=== PATIENT | male | born 1955 | race Caucasian/White ===

== ENCOUNTER 2017-11-07 14:22 | Emergency (ER) | payer BC, OTHER ==
--- NOTE | 2017-11-07 14:30 | PDOC ---
Attending Attestation - Resident Resident Name: Marina Sena - ED Attending Attestation I have performed the following: I have examined & evaluated the patient, The case was reviewed & discussed with the resident, I agree w/resident's findings & plan, Exceptions are as noted - HPI HPI: 11/07/17 15:41 The patient is a 62 year old male, with no significant past medical history, who presents to the emergency department s/p fall, with left rib pain. As per patient, he was getting up when he fell, hitting his left sided ribs on an armchair. After falling, he was unable to ambulate. He denies any loss of consciousness. He denies hitting his head. He denies any recent fevers, chills, headache or dizziness. He denies any recent nausea, vomit , diarrhea or constipation. He denies any recent chest pain or shortness of breath. He denies any recent dysuria, frequency, urgency or hematuria. Allergies: NKA Social History: Smoker. Denies EtOH use and recreational drug use. Primary Care Physician: Dr. Mayer - Physicial Exam PE: 11/07/17 15:41 GENERAL: Awake, alert, and fully oriented, in no acute distress HEAD: No signs of trauma EYES: PERRLA, EOMI, sclera anicteric, conjunctiva clear ENT: Auricles normal inspection, hearing grossly normal, nares patent, oropharynx clear without exudates. Moist mucosa NECK: Normal ROM, supple, no lymphadenopathy, JVD, or masses +LUNGS: Left chest wall ecchymosis and crepitus. Breath sounds equal, clear to auscultation bilaterally. No wheezes, and no crackles HEART: Regular rate and rhythm, normal S1 and S2, no murmurs, rubs or gallops ABDOMEN: Soft, nontender, normoactive bowel sounds. No guarding, no rebound. No masses EXTREMITIES: Normal range of motion, no edema. No clubbing or cyanosis. No cords, erythema, or tenderness NEUROLOGICAL: Cranial nerves II through XII grossly intact. Normal speech, normal gait SKIN: Warm, Dry, normal turgor, no rashes or lesions noted. Attestations - Attestations 11/07/17 15:42 Documentation prepared by Steve Valero, acting as medical massage therapist for Naya Cade MD.
[2017-11-07 14:38] VITALS: BP 118/64; TEMP 98.3; BMI 19.3
[2017-11-07] MEDS ORDERED: ACETAMINOPHEN 1000 MG/100 ML VIAL (NON FORMULARY) IVPB ONE (15:13)
[2017-11-07] MEDS ORDERED: ACETAMINOPHEN INJECTION 100 ML IVPB ONE (15:29)
[2017-11-07 15:50] VITALS: PULSE 112
== END 2017-11-07 16:14 | disposition short-term general hospital (02) ==
LOC: JER 14:22
PROC: 3E033NZ Introduction of Analgesics, Hypnotics, Sedatives into Peripheral Vein, Percutaneous Approach (ICD-10-PCS; principal; 2017-11-07)
DX: S22.42XA Multiple fractures of ribs, left side, initial encounter for closed fracture (principal); W18.09XA Striking against other object with subsequent fall, initial encounter; Y93.89 Activity, other specified; Y92.038 Other place in apartment as the place of occurrence of the external cause; Y99.8 Other external cause status
CPT/HCPCS: 71045-TC-FY; 99283-25; J0131

== ENCOUNTER 2022-04-07 22:30 | Inpatient (IN) | payer OTHER ==
[2022-04-08] MEDS ORDERED: ACETAMINOPHEN 1000 MG/100 ML BAG IVPB ONE (04:33)
[2022-04-08] MEDS ORDERED: ACETAMINOPHEN INJECTION 100 ML IVPB ONE (06:33)
[2022-04-08 06:49] LABS: BASO % 0.9 % (0-2.0); EOS % 3.5 % (0-4.5); HEMATOCRIT 26.3 % (35.4-49); HEMOGLOBIN 7.6 GM/dL (11.7-16.9); MCHC 28.9 g/dl (32.0-35.9); MEAN CELL VOLUME 60.2 fl (80-96); MEAN PLT VOLUME 6.6 fl (7.5-11.1); MONO % 11.3 % (3.8-10.2); NEUT % 57.3 % (42.8-82.8); PLATELET COUNT 708 10^3/uL (134-434); RBC 4.36 M/mm3 (4.00-5.60); RDW 19.6 % (11.9-15.9); WHITE BLOOD COUNT 10.7 K/mm3 (4.0-10.0)
[2022-04-08 06:53] LABS: INR 1.05 (0.83-1.09); PROTHROMBIN TIME (PATIENT) 12.1 SEC (9.7-13.0)
[2022-04-08 06:59] LABS: ALBUMIN 2.5 g/dl (3.4-5.0); BLOOD UREA NITROGEN 4.9 mg/dL (7-18); CALCIUM 8.3 mg/dL (8.5-10.1)
[2022-04-08 07:02] LABS: CREATININE 0.6 mg/dL (0.55-1.3)
[2022-04-08 07:04] LABS: BILIRUBIN,TOTAL 0.3 mg/dL (0.2-1); TOT PROT 6.2 g/dl (6.4-8.2)
[2022-04-08 07:09] LABS: MCH 17.4 pg (25.7-33.7)
[2022-04-08 09:10] LABS: ANISOCYTOSIS 3+; MACROCYTOSIS 0; ROULEAU 1+; TARGET CELLS 1+
[2022-04-08] MEDS ORDERED: KETOROLAC TROMETHAMINE 15 MG/ML VIAL IVPUSH PRN (13:55)
[2022-04-08] MEDS ORDERED: PANTOPRAZOLE 40 MG TABLET PO ONE (18:41)
[2022-04-08] MEDS: PANTOPRAZOLE 40 MG TABLET PO SCH (18:42)
[2022-04-08] MEDS: ATORVASTATIN CA 40 MG TABLET (FP) PO SCH (21:07)
[2022-04-08] MEDS ORDERED: ATORVASTATIN CA 40 MG TABLET (FP) ONE (21:08)
[2022-04-09] MEDS ORDERED: SODIUM CHLORIDE 1,000 ML IV SCH (08:00)
[2022-04-09 08:13] LABS: RETICULOCYTES 1.91 % (0.5-1.5)
[2022-04-09 09:03] LABS: HEMATOCRIT 27.3 % (35.4-49); HEMOGLOBIN 8.1 GM/dL (11.7-16.9); MCHC 29.6 g/dl (32.0-35.9); MEAN CELL VOLUME 64.3 fl (80-96); MEAN PLT VOLUME 7.1 fl (7.5-11.1); PLATELET COUNT 593 10^3/uL (134-434); RBC 4.25 M/mm3 (4.00-5.60); RDW 24.6 % (11.9-15.9); WHITE BLOOD COUNT 8.4 K/mm3 (4.0-10.0)
[2022-04-09 09:32] LABS: ALBUMIN 2.2 g/dl (3.4-5.0)
[2022-04-09 09:33] LABS: BLOOD UREA NITROGEN 7.7 mg/dL (7-18); CALCIUM 7.7 mg/dL (8.5-10.1); MAGNESIUM 1.9 mg/dL (1.8-2.4); TOT PROT 5.1 g/dl (6.4-8.2)
[2022-04-09 09:35] LABS: CREATININE 0.6 mg/dL (0.55-1.3); PHOSPHOROUS 2.8 mg/dL (2.5-4.9)
[2022-04-09 09:37] LABS: BILIRUBIN,TOTAL 1.3 mg/dL (0.2-1)
[2022-04-09 09:46] LABS: ANISOCYTOSIS 3+; MACROCYTOSIS 0; TARGET CELLS 1+
[2022-04-09] MEDS ORDERED: guaiFENesin 200 MG/10 ML 10 ML UNIT-DOSE CUPS PO PRN (10:27)
[2022-04-09] MEDS: PANTOPRAZOLE 40 MG TABLET PO SCH ×2 (10:58→11:00)
[2022-04-09] MEDS: THIAMINE HCL 100 MG TABLET (FP) PO SCH ×2 (10:59→11:24)
[2022-04-09] MEDS: FOLIC ACID 1 MG TABLET (FP) PO SCH ×2 (10:59→11:24)
[2022-04-09] MEDS ORDERED: PANTOPRAZOLE 40 MG TABLET PO ONE (11:00)
[2022-04-09] MEDS ORDERED: ASPIRIN 81 MG CHEWABLE TABLETS ONE (19:26)
[2022-04-09] MEDS: ASPIRIN 81 MG CHEWABLE TABLETS PO SCH (19:32)
[2022-04-10] MEDS: ATORVASTATIN CA 40 MG TABLET (FP) PO SCH (01:31)
[2022-04-10 02:02] VITALS: BMI 16.9
[2022-04-10 06:18] VITALS: RESP 20
[2022-04-10] MEDS ORDERED: LORazepam 1 MG TABLET PO PRN (08:44)
[2022-04-10] MEDS ORDERED: PATIENT'S OWN MEDICATION (NON-FORMULARY) (Ferrous Sulfate [Ferrous Sulfate] 325 MG Tablet) PO SCH (08:45)
[2022-04-10] MEDS ORDERED: FLU VACC QS2022-23(6MOS UP)/PF 60 MCG/0.5 ML SYRINGE IM ONE (10:00)
[2022-04-10] MEDS ORDERED: FENOFIBRIC ACID 135 MG CAP PO SCH (10:00)
[2022-04-10] MEDS: ASPIRIN 81 MG CHEWABLE TABLETS PO SCH (12:01)
[2022-04-10] MEDS: PANTOPRAZOLE 40 MG TABLET PO SCH (12:02)
[2022-04-10] MEDS: FOLIC ACID 1 MG TABLET (FP) PO SCH (12:02)
[2022-04-10] MEDS: THIAMINE HCL 100 MG TABLET (FP) PO SCH (12:02)
[2022-04-10 16:30] VITALS: BP 114/60; PULSE 99; TEMP 100
[2022-04-11] MEDS ORDERED: ENOXAPARIN NA (PORCINE) 40 MG/0.4 ML DISP.SYRIN SQ SCH (10:00)
== END 2022-04-10 14:00 | disposition left against medical advice (07) | DRG 301 ==
LOC: JER 22:30 → JERBED 04-08 13:44 → J7W 04-09 23:22
PROVIDERS: ADMIT Internal Medicine; ATTEND Internal Medicine
DX: I73.9 Peripheral vascular disease, unspecified (principal); D50.9 Iron deficiency anemia, unspecified; I71.40 Abdominal aortic aneurysm, without rupture, unspecified; I10 Essential (primary) hypertension; F17.210 Nicotine dependence, cigarettes, uncomplicated; F10.20 Alcohol dependence, uncomplicated
CPT/HCPCS: 0241U-QW; 36415; 36430; 71045-TC-FY; 75635-TC; 80053; 82272; 82607; 82728; 82746; 83540; 83550; 83605; 83735; 84100; 85025; 85045; 85610; 85730; 86850; 86900; 86901; 86922; 93005; 93010; 93306-TC; 99285-25; G0008; P9058; Q2036; Q9967

== ENCOUNTER 2022-04-15 04:11 | Day surgery (SDC) | payer OTHER ==
[2022-04-14 16:44] VITALS: BMI 17.7
[2022-04-15] MEDS ORDERED: LIDOCAINE HCL 1%, 10 MG/ML (20ML VIAL) ONE (10:48)
[2022-04-15] MEDS ORDERED: HEPARIN NA (PORCINE) 5,000 UNITS/ML 1ML VIAL ONE ×2 (10:48→12:32)
[2022-04-15] MEDS ORDERED: MIDAZOLAM HCL 2 MG/2 ML SINGLE DOSE VIAL ONE (12:03)
[2022-04-15] MEDS ORDERED: FENTANYL CITRATE/PF 50 MCG/ML VIAL ONE (12:03)
[2022-04-15] MEDS ORDERED: PROPOFOL 20 ML ONE ×2 (12:03→12:56)
[2022-04-15] MEDS ORDERED: ceFAZolin SODIUM 1 GM VIAL ONE (12:14)
[2022-04-15] MEDS ORDERED: ceFAZolin SODIUM 1 GM VIAL IVPB ONE (12:15)
[2022-04-15] MEDS ORDERED: LIDOCAINE HCL 1%, 10 MG/ML (50 mL VIAL) INF ONE (12:45)
[2022-04-15] MEDS ORDERED: CLOPIDOGREL BISULFATE 75 MG TABLET (FP) PO ONE (13:48)
[2022-04-15] MEDS ORDERED: CLOPIDOGREL BISULFATE 75 MG TABLET (FP) ONE (14:35)
[2022-04-15 15:20] VITALS: RESP 20
[2022-04-15] MEDS ORDERED: ACETAMINOPHEN 500 MG TABLET (FP) ONE (15:23)
[2022-04-15 15:47] VITALS: BP 169/78; PULSE 86; TEMP 96.7
== END 2022-04-15 16:30 | disposition home or self-care (01) ==
LOC: JASU-SURG 04:11
PROVIDERS: ATTEND Surgery Vascular Surgery
PROC: 047L3D1 Dilation of Left Femoral Artery with Intraluminal Device, using Drug-Coated Balloon, Percutaneous Approach (ICD-10-PCS; 2022-04-15)
PROC: B41DYZZ Fluoroscopy of Aorta and Bilateral Lower Extremity Arteries using Other Contrast (ICD-10-PCS; principal; 2022-04-15 12:00)
DX: I73.9 Peripheral vascular disease, unspecified (principal); Z72.0 Tobacco use
CPT/HCPCS: 37226; C1877; C2623; 76000-TC-FY; 94760; C1760; C1776; J1644

== ENCOUNTER 2022-04-19 10:58 | Inpatient (IN) | payer OTHER ==
[2022-04-19 13:13] LABS: BASO % 1.8 % (0-2.0); EOS % 3.3 % (0-4.5); HEMATOCRIT 27.9 % (35.4-49); HEMOGLOBIN 8.2 GM/dL (11.7-16.9); LYMPH % 16.2 % (8-40); MCHC 29.5 g/dl (32.0-35.9); MEAN CELL VOLUME 63.6 fl (80-96); MEAN PLT VOLUME 6.3 fl (7.5-11.1); MONO % 15.6 % (3.8-10.2); NEUT % 63.1 % (42.8-82.8); PLATELET COUNT 923 10^3/uL (134-434); RBC 4.38 M/mm3 (4.00-5.60); RDW 26.2 % (11.9-15.9); WHITE BLOOD COUNT 8.6 K/mm3 (4.0-10.0)
[2022-04-19 13:17] LABS: MCH 18.8 pg (25.7-33.7)
[2022-04-19 13:32] LABS: CALCIUM 8.5 mg/dL (8.5-10.1)
[2022-04-19 13:33] LABS: ALBUMIN 2.5 g/dl (3.4-5.0); BLOOD UREA NITROGEN 5.5 mg/dL (7-18)
[2022-04-19 13:36] LABS: CREATININE 0.6 mg/dL (0.55-1.3)
[2022-04-19 13:37] LABS: TOT PROT 6.3 g/dl (6.4-8.2)
[2022-04-19 13:38] LABS: BILIRUBIN,TOTAL 0.3 mg/dL (0.2-1)
[2022-04-19 13:40] LABS: ACTIVATED PTT 31.7 SECONDS (25.2-36.5); INR 1.03 (0.83-1.09); PROTHROMBIN TIME (PATIENT) 11.8 SEC (9.7-13.0)
[2022-04-19] MEDS ORDERED: CLOPIDOGREL BISULFATE 75 MG TABLET (FP) PO ONE (14:01)
[2022-04-19] MEDS ORDERED: QUINAPRIL HCL 40 MG TABLET PO ONE (14:01)
[2022-04-19 14:18] LABS: ANISOCYTOSIS 3+; MACROCYTOSIS 0; OVALOCYTE 1+
[2022-04-19] MEDS ORDERED: CLOPIDOGREL BISULFATE 75 MG TABLET (FP) ONE (14:20)
[2022-04-19] MEDS ORDERED: ENOXAPARIN NA (PORCINE) 40 MG/0.4 ML DISP.SYRIN SQ ONE (14:20)
[2022-04-19] MEDS: ENOXAPARIN NA (PORCINE) 40 MG/0.4 ML DISP.SYRIN SQ SCH (14:23)
[2022-04-20 06:06] VITALS: BMI 16.9
[2022-04-20] MEDS: ASPIRIN 81 MG CHEWABLE TABLETS PO SCH (11:18)
[2022-04-20] MEDS: ENOXAPARIN NA (PORCINE) 40 MG/0.4 ML DISP.SYRIN SQ SCH (11:18)
[2022-04-20] MEDS ORDERED: LIDOCAINE HCL 1%, 10 MG/ML (20ML VIAL) ONE (14:30)
[2022-04-20] MEDS ORDERED: HEPARIN NA (PORCINE) 5,000 UNITS/ML 1ML VIAL ONE (14:31)
[2022-04-20] MEDS: NICOTINE 21 MG/24 HOURS TOPICAL PATCH TD SCH (16:23)
[2022-04-20 19:26] LABS: BASO % 1.4 % (0-2.0); EOS % 5.3 % (0-4.5); HEMATOCRIT 25.1 % (35.4-49); HEMOGLOBIN 7.7 GM/dL (11.7-16.9); LYMPH % 31.7 % (8-40); MCHC 30.7 g/dl (32.0-35.9); MEAN CELL VOLUME 63.4 fl (80-96); MEAN PLT VOLUME 6.6 fl (7.5-11.1); MONO % 9.1 % (3.8-10.2); NEUT % 52.5 % (42.8-82.8); PLATELET COUNT 929 10^3/uL (134-434); RBC 3.96 M/mm3 (4.00-5.60); RDW 25.8 % (11.9-15.9)
[2022-04-20 19:30] LABS: INR 1.15 (0.83-1.09); PROTHROMBIN TIME (PATIENT) 13.2 SEC (9.7-13.0)
[2022-04-20 19:35] LABS: MCH 19.4 pg (25.7-33.7)
[2022-04-20 19:53] LABS: BLOOD UREA NITROGEN 8.3 mg/dL (7-18); CALCIUM 8.1 mg/dL (8.5-10.1)
[2022-04-20 19:54] LABS: ALBUMIN 2.1 g/dl (3.4-5.0); MAGNESIUM 1.9 mg/dL (1.8-2.4)
[2022-04-20 19:57] LABS: CREATININE 0.8 mg/dL (0.55-1.3)
[2022-04-20 19:58] LABS: BILIRUBIN,TOTAL 0.4 mg/dL (0.2-1)
[2022-04-20 19:59] LABS: TOT PROT 5.5 g/dl (6.4-8.2)
[2022-04-20 21:20] LABS: ANISOCYTOSIS 3+; OVALOCYTE 1+; PLATELET ESTIMATE INCREASED; TARGET CELLS 1+
[2022-04-20] MEDS: FENOFIBRIC ACID 135 MG CAP PO SCH (23:57)
[2022-04-21] MEDS: NICOTINE 21 MG/24 HOURS TOPICAL PATCH TD SCH (09:48)
[2022-04-21] MEDS: CLOPIDOGREL BISULFATE 75 MG TABLET (FP) PO SCH (09:48)
[2022-04-21 10:26] LABS: BASO % 1.5 % (0-2.0); EOS % 6.1 % (0-4.5); HEMATOCRIT 24.1 % (35.4-49); HEMOGLOBIN 7.3 GM/dL (11.7-16.9); LYMPH % 25.8 % (8-40); MCH 19.2 pg (25.7-33.7); MCHC 30.1 g/dl (32.0-35.9); MEAN CELL VOLUME 63.8 fl (80-96); MEAN PLT VOLUME 6.5 fl (7.5-11.1); MONO % 12.3 % (3.8-10.2); NEUT % 54.3 % (42.8-82.8); PLATELET COUNT 901 10^3/uL (134-434); RBC 3.78 M/mm3 (4.00-5.60); RDW 26.1 % (11.9-15.9); WHITE BLOOD COUNT 6.7 K/mm3 (4.0-10.0)
[2022-04-21 10:52] LABS: BLOOD UREA NITROGEN 8.4 mg/dL (7-18); CALCIUM 7.9 mg/dL (8.5-10.1)
[2022-04-21 10:53] LABS: ALBUMIN 2.1 g/dl (3.4-5.0)
[2022-04-21 10:54] LABS: MAGNESIUM 1.7 mg/dL (1.8-2.4)
[2022-04-21 10:57] LABS: BILIRUBIN,TOTAL 0.3 mg/dL (0.2-1); CREATININE 0.7 mg/dL (0.55-1.3)
[2022-04-21 10:59] LABS: TOT PROT 5.5 g/dl (6.4-8.2)
[2022-04-21] MEDS ORDERED: MAGNESIUM OXIDE 400 MG TABLET (FP) PO ONE (13:30)
[2022-04-21] MEDS: SODIUM CHLORIDE 1 GM TABLET PO SCH ×2 (14:36→22:56)
[2022-04-21] MEDS: FENOFIBRIC ACID 135 MG CAP PO SCH (22:56)
[2022-04-22] MEDS: CLOPIDOGREL BISULFATE 75 MG TABLET (FP) PO SCH (09:14)
[2022-04-22] MEDS: SODIUM CHLORIDE 1 GM TABLET PO SCH (09:14)
[2022-04-22] MEDS: NICOTINE 21 MG/24 HOURS TOPICAL PATCH TD SCH (09:14)
[2022-04-22] MEDS: ENOXAPARIN NA (PORCINE) 40 MG/0.4 ML DISP.SYRIN SQ SCH (09:49)
[2022-04-22] MEDS: ASPIRIN 81 MG CHEWABLE TABLETS PO SCH (09:49)
[2022-04-22] MEDS ORDERED: PROPOFOL 20 ML ONE (10:36)
[2022-04-22] MEDS ORDERED: ONDANSETRON 4 MG/2 ML VIAL ONE (10:36)
[2022-04-22] MEDS ORDERED: ceFAZolin SODIUM 1 GM VIAL ONE ×2 (10:36→12:22)
[2022-04-22] MEDS ORDERED: LIDOCAINE HCL/PF 2% SDV 5ML VIAL ONE (10:36)
[2022-04-22] MEDS ORDERED: MIDAZOLAM HCL 2 MG/2 ML SINGLE DOSE VIAL ONE ×2 (10:36→11:16)
[2022-04-22] MEDS ORDERED: HEPARIN NA (PORCINE) 5,000 UNITS/ML 1ML VIAL ONE ×2 (10:37→11:08)
[2022-04-22] MEDS ORDERED: LACTATED RINGERS SOLUTION 1,000 ML IV SCH ×2 (11:00→13:25)
[2022-04-22] MEDS ORDERED: ONDANSETRON 4 MG/2 ML VIAL IVPUSH PRN ×2 (11:00→13:25)
[2022-04-22] MEDS ORDERED: LIDOCAINE HCL 1%, 10 MG/ML (20ML VIAL) ONE (11:08)
[2022-04-22 11:20] LABS: BASO % 1.2 % (0-2.0); EOS % 4.1 % (0-4.5); LYMPH % 18.8 % (8-40); MEAN CELL VOLUME 64.5 fl (80-96); MEAN PLT VOLUME 6.4 fl (7.5-11.1); MONO % 9.6 % (3.8-10.2); NEUT % 66.3 % (42.8-82.8); PLATELET COUNT 885 10^3/uL (134-434); RBC 3.41 M/mm3 (4.00-5.60); WHITE BLOOD COUNT 7.9 K/mm3 (4.0-10.0)
[2022-04-22 11:52] LABS: ALBUMIN 2.2 g/dl (3.4-5.0); BLOOD UREA NITROGEN 11.8 mg/dL (7-18); CALCIUM 7.6 mg/dL (8.5-10.1)
[2022-04-22 11:55] LABS: CREATININE 0.6 mg/dL (0.55-1.3)
[2022-04-22 11:57] LABS: BILIRUBIN,TOTAL 0.3 mg/dL (0.2-1); TOT PROT 5.6 g/dl (6.4-8.2)
[2022-04-22] MEDS ORDERED: FERROUS SO4 325 MG TABLET (FP) PO SCH ×2 (12:00→17:30)
[2022-04-22] MEDS ORDERED: ceFAZolin SODIUM 1 GM VIAL IVPB ONE (12:21)
[2022-04-22] MEDS ORDERED: SODIUM CHLORIDE 0.9% P/F 10 ML VIAL IJ ONE (12:22)
[2022-04-22 12:35] LABS: HEMOGLOBIN 6.8 GM/dL (11.7-16.9)
[2022-04-22] MEDS ORDERED: LIDOCAINE HCL 1%, 10 MG/ML (20ML VIAL) NR ONE (12:36)
[2022-04-22] MEDS ORDERED: IRON SUCROSE INJECTION 200 MG in SODIUM CHLORIDE 90 ML IVPB ONE ×2 (13:00→14:30)
[2022-04-22 14:24] VITALS: RESP 15
[2022-04-22] MEDS ORDERED: INSULIN (NOVOLOG) ASPART 100 UNITS/ML 10ML VIAL ONE (16:25)
[2022-04-22 19:01] VITALS: BP 130/67; PULSE 75; TEMP 97.8
[2022-04-22] MEDS ORDERED: SODIUM CHLORIDE 1 GM TABLET PO SCH (22:00)
[2022-04-22] MEDS ORDERED: FENOFIBRIC ACID 135 MG CAP PO SCH (22:00)
[2022-04-23] MEDS ORDERED: CLOPIDOGREL BISULFATE 75 MG TABLET (FP) PO SCH (10:00)
[2022-04-23] MEDS ORDERED: ENOXAPARIN NA (PORCINE) 40 MG/0.4 ML DISP.SYRIN SQ SCH (10:00)
[2022-04-23] MEDS ORDERED: FOLIC ACID 1 MG TABLET (FP) PO SCH ×2 (10:00)
[2022-04-23] MEDS ORDERED: NICOTINE 21 MG/24 HOURS TOPICAL PATCH TD SCH (10:00)
[2022-04-23] MEDS ORDERED: ASPIRIN 81 MG CHEWABLE TABLETS PO SCH (10:00)
== END 2022-04-22 19:20 | disposition home or self-care (01) | DRG 271 ==
LOC: JER 10:58 → JERBED 13:28 → J8W 20:36
PROVIDERS: ADMIT Internal Medicine; ATTEND Nurse Practitioner Acute Care
PROC: 047K3ZZ Dilation of Right Femoral Artery, Percutaneous Approach (ICD-10-PCS; 2022-04-22)
PROC: 3E05317 Introduction of Other Thrombolytic into Peripheral Artery, Percutaneous Approach (ICD-10-PCS; 2022-04-22)
PROC: B41DYZZ Fluoroscopy of Aorta and Bilateral Lower Extremity Arteries using Other Contrast (ICD-10-PCS; 2022-04-22)
PROC: 04CK3ZZ Extirpation of Matter from Right Femoral Artery, Percutaneous Approach (ICD-10-PCS; principal; 2022-04-22 12:00)
DX: I73.9 Peripheral vascular disease, unspecified (principal); E87.1 Hypo-osmolality and hyponatremia; I10 Essential (primary) hypertension; E78.5 Hyperlipidemia, unspecified; D50.9 Iron deficiency anemia, unspecified; F17.210 Nicotine dependence, cigarettes, uncomplicated; I99.8 Other disorder of circulatory system
CPT/HCPCS: 36415; 36430; 71046-TC-FY; 76000-TC-FY; 80053; 80061; 82436; 82533; 82728; 83540; 83550; 83735; 83930; 83935; 84133; 84300; 84436; 84443; 84480; 85025; 85610; 85730; 86850; 86900; 86901; 86922; 93005; 93010; 93926-TC; 94760; 99285-25; C9803-CS; G0463-25; J1644; J1756; P9058; U0003; U0005

== ENCOUNTER 2023-05-18 11:03 | Inpatient (IN) | payer OTHER ==
[2023-05-18] MEDS: CEFTRIAXONE 1 GM in DEXTROSE 5%-WATER - 100 ML IVPB ONE (12:21)
[2023-05-18] MEDS: SODIUM CHLORIDE 0.9% 500 ML INFUS.BAG IV ONE ×4 (12:21→14:41)
[2023-05-18] MEDS ORDERED: CEFTRIAXONE 1 GM/50 ML BAG ONE (12:22)
[2023-05-18 12:30] LABS: BASO % 0.3 % (0-2.0); EOS % 0.4 % (0-4.5); HEMATOCRIT 25.1 % (35.4-49); HEMOGLOBIN 7.8 GM/dL (11.7-16.9); MCH 23.5 pg (25.7-33.7); MCHC 30.9 g/dl (32.0-35.9); MEAN CELL VOLUME 76.1 fl (80-96); MEAN PLT VOLUME 6.5 fl (7.5-11.1); MONO % 5.7 % (3.8-10.2); NEUT % 87.6 % (42.8-82.8); PLATELET COUNT 301 10^3/uL (134-434); RDW 17.1 % (11.9-15.9); WHITE BLOOD COUNT 14.8 K/mm3 (4.0-10.0)
[2023-05-18 12:36] LABS: INR 1.86 (0.83-1.09); PROTHROMBIN TIME (PATIENT) 21.4 SEC (9.7-13.0)
[2023-05-18 12:38] LABS: ACTIVATED PTT 35.4 SECONDS (25.2-36.5)
[2023-05-18 12:55] LABS: PH,URINE 5.5 (5.0-8.0); URINE APPEARANCE CLEAR; URINE BILIRUBIN NEGATIVE (NEGATIVE); URINE COLOR YELLOW; URINE GLUCOSE (UA) NEGATIVE (NEGATIVE); URINE KETONE NEGATIVE (NEGATIVE); URINE LEUK ESTERASE NEGATIVE (NEGATIVE); URINE NITRITE NEGATIVE (NEGATIVE); URINE PROTEIN NEGATIVE (NEGATIVE); URINE UROBILINOGEN 0.2 mg/dL (0.2-1.0)
[2023-05-18 13:11] LABS: LACTIC ACID 2.2 mmol/L (0.4-2.0)
[2023-05-18 13:20] LABS: CHLORIDE 99 mmol/L (98-107); POTASSIUM 4.1 mmol/L (3.5-5.1); SODIUM 127 mmol/L (136-145)
[2023-05-18 13:26] LABS: ALBUMIN 1.2 g/dl (3.4-5.0); ANION GAP 8 mmol/L (4-13); CALCIUM 7.2 mg/dL (8.5-10.1); CO2 19 mmol/L (21-32)
[2023-05-18 13:28] LABS: CREATININE 0.8 mg/dL (0.55-1.3); SGOT/AST 43 U/L (15-37); SGPT/ALT 23 U/L (13-61)
[2023-05-18 13:30] LABS: TOT PROT 3.6 g/dl (6.4-8.2)
[2023-05-18 13:31] LABS: ALK PHOS 118 U/L (45-117)
[2023-05-18 13:39] LABS: BILIRUBIN,TOTAL 0.5 mg/dL (0.2-1)
[2023-05-18 13:47] LABS: BLOOD UREA NITROGEN 2.2 mg/dL (7-18); GLUCOSE,RANDOM 47 mg/dL (74-106)
[2023-05-18] MEDS ORDERED: DEXTROSE 50%-WATER 25 GM/50 ML DISP.SYRIN ONE (13:52)
[2023-05-18] MEDS: DEXTROSE 50%-WATER 25 GM/50 ML DISP.SYRIN IVPUSH ONE (13:55)
[2023-05-18] MEDS ORDERED: THIAMINE HCL 200 MG/2 ML VIAL ONE (14:03)
[2023-05-18] MEDS: THIAMINE HCL 200 MG/2 ML VIAL IVPB ONE (14:04)
[2023-05-18] MEDS: LACTATED RINGERS SOLUTION 1,000 ML/1,000 ML INFUS.BAG IV STA (14:40)
[2023-05-18] MEDS: LACTATED RINGERS SOLUTION 1000 ML INFUS.BAG IV ONE (15:56)
[2023-05-18] MEDS: DEXTROSE 5%-LACTATED RINGERS 1,000 ML IV SCH (18:59)
[2023-05-18] MEDS: FENOFIBRIC ACID 135 MG CAP PO SCH (21:05)
[2023-05-18 21:19] LABS: CHLORIDE 102 mmol/L (98-107); POTASSIUM 4.1 mmol/L (3.5-5.1); SODIUM 130 mmol/L (136-145)
[2023-05-18 21:21] LABS: ANION GAP 9 mmol/L (4-13); CO2 19 mmol/L (21-32); GLUCOSE,RANDOM 66 mg/dL (74-106)
[2023-05-18 21:24] LABS: CREATININE 0.7 mg/dL (0.55-1.3)
[2023-05-18 21:30] LABS: BLOOD UREA NITROGEN 2.4 mg/dL (7-18); CALCIUM 6.9 mg/dL (8.5-10.1)
[2023-05-19 08:02] LABS: BASO % 0.3 % (0-2.0); EOS % 3.1 % (0-4.5); HEMATOCRIT 22.2 % (35.4-49); LYMPH % 9.6 % (8-40); MCHC 31.5 g/dl (32.0-35.9); MEAN CELL VOLUME 76.3 fl (80-96); MEAN PLT VOLUME 6.9 fl (7.5-11.1); MONO % 10.3 % (3.8-10.2); NEUT % 76.7 % (42.8-82.8); PLATELET COUNT 323 10^3/uL (134-434); RBC 2.92 M/mm3 (4.00-5.60); RDW 16.9 % (11.9-15.9); WHITE BLOOD COUNT 11.1 K/mm3 (4.0-10.0)
[2023-05-19 08:08] LABS: CHLORIDE 102 mmol/L (98-107); SODIUM 129 mmol/L (136-145)
[2023-05-19 08:11] LABS: ALBUMIN 1.1 g/dl (3.4-5.0); ANION GAP 6 mmol/L (4-13); CO2 21 mmol/L (21-32); GLUCOSE,RANDOM 114 mg/dL (74-106); MAGNESIUM 1.7 mg/dL (1.8-2.4)
[2023-05-19 08:12] LABS: BLOOD UREA NITROGEN 3.2 mg/dL (7-18)
[2023-05-19 08:14] LABS: PHOSPHOROUS 2.2 mg/dL (2.5-4.9); SGPT/ALT 22 U/L (13-61)
[2023-05-19 08:15] LABS: CREATININE 0.8 mg/dL (0.55-1.3); SGOT/AST 36 U/L (15-37)
[2023-05-19 08:16] LABS: BILIRUBIN,TOTAL 0.4 mg/dL (0.2-1); TOT PROT 3.3 g/dl (6.4-8.2)
[2023-05-19 08:17] LABS: ALK PHOS 116 U/L (45-117)
[2023-05-19 08:26] LABS: CALCIUM 6.7 mg/dL (8.5-10.1)
[2023-05-19] MEDS ORDERED: MAGNESIUM SULFATE IN WATER 2 GM/50 ML IVPB IVPB ONE ×2 (08:31→11:44)
[2023-05-19] MEDS: MAGNESIUM 2GM/50ML STERILE WATER IVPB IVPB ONE ×3 (08:35→13:01)
[2023-05-19] MEDS: ENOXAPARIN NA (PORCINE) 40 MG/0.4 ML DISP.SYRIN SQ SCH (10:19)
[2023-05-19] MEDS: FOLIC ACID 1 MG TABLET (FP) PO SCH (10:19)
[2023-05-19] MEDS: ASPIRIN 81 MG CHEWABLE TABLETS PO SCH (10:19)
[2023-05-19] MEDS: FERROUS SO4 325 MG TABLET (FP) PO SCH (10:19)
[2023-05-19] MEDS: CLOPIDOGREL BISULFATE 75 MG TABLET (FP) PO SCH (10:20)
[2023-05-19] MEDS: THIAMINE HCL 100 MG TABLET (FP) PO SCH (10:20)
[2023-05-19] MEDS: PIPERACILLIN/TAZOB 3.375 GM 3.375 GM in DEXTROSE 5%-WATER - 50 ML IVPB SCH ×3 (10:35→18:44)
[2023-05-19] MEDS ORDERED: PIPERACILLIN/TAZOB 3.375 GM 3.375 GM/50 ML BAG IVPB ONE ×2 (10:35→18:45)
[2023-05-19] MEDS: SODIUM PHOSPHATE - 30 MM in SODIUM CHLORIDE 500 ML IVPB ONE (11:45)
[2023-05-19] MEDS: MAGNESIUM SULF 50% (8.12 MEQ/2 ML-1 GM VIAL) IVPB ONE (11:45)
[2023-05-19] MEDS: QUINAPRIL HCL 40 MG TABLET PO SCH (11:45)
[2023-05-19] MEDS ORDERED: VANCOMYCIN 1 GRAM (PRE-DOCKED) 1,000 MG/250 ML BAG IVPB ONE (16:11)
[2023-05-19] MEDS: VANCOMYCIN 1,000 MG in DEXTROSE 5%-WATER - 250 ML IVPB ONE (16:12)
[2023-05-20] MEDS ORDERED: PIPERACILLIN/TAZOB 3.375 GM 3.375 GM/50 ML BAG IVPB ONE (02:30)
[2023-05-20 07:22] LABS: HEMATOCRIT 23.2 % (35.4-49); HEMOGLOBIN 7.2 GM/dL (11.7-16.9); MCH 23.6 pg (25.7-33.7); MCHC 30.9 g/dl (32.0-35.9); MEAN CELL VOLUME 76.4 fl (80-96); MEAN PLT VOLUME 6.9 fl (7.5-11.1); PLATELET COUNT 293 10^3/uL (134-434); RBC 3.04 M/mm3 (4.00-5.60); RDW 16.9 % (11.9-15.9); WHITE BLOOD COUNT 8.7 K/mm3 (4.0-10.0)
[2023-05-20 07:33] LABS: POTASSIUM 3.9 mmol/L (3.5-5.1)
[2023-05-20 07:42] LABS: CALCIUM 7.1 mg/dL (8.5-10.1)
[2023-05-20 07:43] LABS: BLOOD UREA NITROGEN 4.8 mg/dL (7-18)
[2023-05-20 07:46] LABS: CREATININE 1.1 mg/dL (0.55-1.3); PHOSPHOROUS 3.6 mg/dL (2.5-4.9)
[2023-05-20 07:47] LABS: BILIRUBIN,TOTAL 0.5 mg/dL (0.2-1); TOT PROT 3.3 g/dl (6.4-8.2)
[2023-05-20] MEDS: FUROSEMIDE 40 MG/4 ML INJECTABLE VIAL IVPUSH ONE (08:06)
[2023-05-20] MEDS: NICOTINE 14 MG/24 HOURS TOPICAL PATCH TD SCH (09:46)
[2023-05-20] MEDS ORDERED: ALBUTEROL SO4 2.5/IPRATROPIUM 0.5 INH SOL 3 ML VIAL.NEB. NEB PRN (09:58)
[2023-05-20] MEDS: SODIUM CHLORIDE 250 ML IV STA (14:04)
[2023-05-20] MEDS: AMINO ACIDS/PROTEIN HYDROLYS 30 ML LIQUID.PKT PO SCH (17:25)
[2023-05-20] MEDS: MINERAL OIL/PET HY-PHL TOPICAL OINTMENT 454 GM JAR TP SCH (17:30)
[2023-05-20] MEDS ORDERED: NOREPINEPHRINE BITARTRATE 4 MG/4 ML ML IV ONE (22:45)
[2023-05-20] MEDS ORDERED: ONDANSETRON 4 MG/2 ML VIAL IVPUSH PRN (23:27)
[2023-05-20] MEDS ORDERED: PROPOFOL 1,000,000 MCG/100 ML VIAL ONE (23:42)
[2023-05-20] MEDS: LACTATED RINGERS SOLUTION 1,000 ML/1,000 ML INFUS.BAG IV STA (23:55)
[2023-05-21] MEDS: VASopressin 40 UNITS/100 ML BAG IV SCH (00:20)
[2023-05-21] MEDS ORDERED: VASopressin 20 UNITS/ML VIAL IV ONE (00:23)
[2023-05-21 00:42] LABS: ARTERIAL BLD GAS O2 SATURATION 99.7 % (95-98); ARTERIAL BLOOD GAS PO2 375.9 mmHg (80-100)
[2023-05-21 00:48] LABS: ARTERIAL BLOOD GAS pH 7.143 (7.350-7.450)
[2023-05-21] MEDS ORDERED: SODIUM BICARBONATE 4.2% 5 MEQ/10 ML DISP.SYRIN IVPUSH ONE ×2 (00:51→00:52)
[2023-05-21] MEDS ORDERED: SODIUM BICARBONATE 8.4% 50 MEQ/50 ML DISP.SYRIN ONE (00:54)
[2023-05-21] MEDS: VANCOMYCIN/WATER FOR INJ (PEG) 1 GM/200 ML BAG IVPB SCH (01:07)
[2023-05-21 01:19] LABS: BASO % 0.5 % (0-2.0); EOS % 4.7 % (0-4.5); LYMPH % 12.1 % (8-40); MCH 22.9 pg (25.7-33.7); MCHC 28.5 g/dl (32.0-35.9); MEAN CELL VOLUME 80.5 fl (80-96); MONO % 4.2 % (3.8-10.2); NEUT % 78.5 % (42.8-82.8); PLATELET COUNT 288 10^3/uL (134-434); RBC 2.86 M/mm3 (4.00-5.60); RDW 17.2 % (11.9-15.9)
[2023-05-21] MEDS: PROPOFOL 1,000,000 MCG/100 ML VIAL IVPB SCH (01:25)
[2023-05-21 01:28] LABS: INR 1.86 (0.83-1.09); PROTHROMBIN TIME (PATIENT) 21.5 SEC (9.7-13.0)
[2023-05-21 01:30] LABS: HEMOGLOBIN 6.6 GM/dL (11.7-16.9)
[2023-05-21] MEDS: SODIUM BICARBONATE 8.4% 50 MEQ/50 ML DISP.SYRIN IVPUSH ONE ×2 (01:30)
[2023-05-21] MEDS: NOREPINEPHRINE BITARTRATE/D5W 8 MG/250 ML BAG IVPB SCH (01:30)
[2023-05-21 01:31] LABS: ACTIVATED PTT 67.4 SECONDS (25.2-36.5)
[2023-05-21] MEDS: FENTANYL NS IVPB 500 MCG/100 ML BAG IVPB SCH (01:31)
[2023-05-21 01:36] LABS: CHLORIDE 108 mmol/L (98-107); SODIUM 138 mmol/L (136-145)
[2023-05-21 01:39] LABS: ALBUMIN 0.9 g/dl (3.4-5.0); ANION GAP 12 mmol/L (4-13); BLOOD UREA NITROGEN 6.1 mg/dL (7-18); CO2 18 mmol/L (21-32); GLUCOSE,RANDOM 122 mg/dL (74-106); MAGNESIUM 2.1 mg/dL (1.8-2.4)
[2023-05-21 01:42] LABS: CREATININE 1.6 mg/dL (0.55-1.3); SGOT/AST 47 U/L (15-37); SGPT/ALT 30 U/L (13-61)
[2023-05-21 01:43] LABS: BILIRUBIN,TOTAL 0.3 mg/dL (0.2-1)
[2023-05-21 01:45] LABS: ALK PHOS 115 U/L (45-117)
[2023-05-21] MEDS ORDERED: CALCIUM GLUCONATE 10% - 1,000 MG/10 ML VIAL ONE (01:53)
[2023-05-21] MEDS: CALCIUM GLUCONATE IN NACL 1 GM/50 ML BAG IVPB SCH (02:00)
[2023-05-21] MEDS: HYDROCORTISONE SOD SUCCINATE 100 MG/2 ML VIAL IVPB SCH (02:00)
[2023-05-21 02:02] LABS: LACTIC ACID 8.6 mmol/L (0.4-2.0)
[2023-05-21 02:02] LABS: CALCIUM 6.8 mg/dL (8.5-10.1)
[2023-05-21] MEDS: HEPARIN NA (PORCINE) 5,000 UNITS/ML 1ML VIAL SQ SCH (05:41)
[2023-05-21 08:40] LABS: ARTERIAL BLD GAS O2 SATURATION 97.2 % (95-98); ARTERIAL BLOOD GAS BASE EXCESS -7.4 mmol/L (-2-2); ARTERIAL BLOOD GAS pH 7.318 (7.350-7.450)
[2023-05-21 08:42] LABS: VENT MODE AC; VENT RATE 14
[2023-05-21 09:45] LABS: BASO % 0.3 % (0-2.0); EOS % 0.2 % (0-4.5); HEMATOCRIT 28.4 % (35.4-49); HEMOGLOBIN 8.7 GM/dL (11.7-16.9); LYMPH % 5.1 % (8-40); MCH 24.6 pg (25.7-33.7); MCHC 30.8 g/dl (32.0-35.9); MEAN CELL VOLUME 79.6 fl (80-96); MEAN PLT VOLUME 7.3 fl (7.5-11.1); MONO % 3.6 % (3.8-10.2); NEUT % 90.8 % (42.8-82.8); PLATELET COUNT 173 10^3/uL (134-434); RBC 3.56 M/mm3 (4.00-5.60); RDW 17.1 % (11.9-15.9); WHITE BLOOD COUNT 13.2 K/mm3 (4.0-10.0)
[2023-05-21] MEDS: PANTOPRAZOLE SODIUM 40 MG VIAL IVPUSH SCH (09:45)
[2023-05-21 09:48] LABS: EPI CELLS 22 /uL (0-25.1); HYALINE CASTS 2 /uL (0-3.1); PH,URINE 5.5 (5.0-8.0); URINE APPEARANCE TURBID; URINE BACTERIA 230 /uL (0-1359); URINE BILIRUBIN NEGATIVE (NEGATIVE); URINE COLOR YELLOW; URINE GLUCOSE (UA) NEGATIVE (NEGATIVE); URINE KETONE NEGATIVE (NEGATIVE); URINE LEUK ESTERASE NEGATIVE (NEGATIVE); URINE NITRITE NEGATIVE (NEGATIVE); URINE PROTEIN 2+ (NEGATIVE); URINE UROBILINOGEN 0.2 mg/dL (0.2-1.0)
[2023-05-21 09:54] LABS: URINE RBC 492.7 /uL (0-23.9); URINE WBC 726.7 /uL (0-25.8); YEAST NEGATIVE (NEGATIVE)
[2023-05-21 10:04] LABS: POTASSIUM 3.6 mmol/L (3.5-5.1)
[2023-05-21 10:07] LABS: ALBUMIN 0.9 g/dl (3.4-5.0); BLOOD UREA NITROGEN 5.1 mg/dL (7-18); MAGNESIUM 1.9 mg/dL (1.8-2.4)
[2023-05-21 10:10] LABS: CREATININE 1.4 mg/dL (0.55-1.3)
[2023-05-21 10:11] LABS: TOT PROT 2.9 g/dl (6.4-8.2)
[2023-05-21 10:14] LABS: BILIRUBIN,TOTAL 0.7 mg/dL (0.2-1); LACTIC ACID 2.1 mmol/L (0.4-2.0)
[2023-05-21] MEDS: MUPIROCIN 2% TOPICAL OINTMENT FOR DECOLONIZATION NS SCH (14:06)
[2023-05-21] MEDS: CHLORHEXIDINE GLUCONATE 4% CLEANSER FOR DECOLONIZATION TP SCH (21:38)
[2023-05-22] MEDS ORDERED: VANCOMYCIN/WATER FOR INJ (PEG) 1 GM/200 ML BAG IVPB SCH
[2023-05-22] MEDS: HEPARIN NA (PORCINE) 5,000 UNITS/ML 1ML VIAL SQ SCH (05:41)
[2023-05-22 08:21] LABS: HEMATOCRIT 29.5 % (35.4-49); MCH 24.6 pg (25.7-33.7); MCHC 30.6 g/dl (32.0-35.9); MEAN CELL VOLUME 80.4 fl (80-96); MEAN PLT VOLUME 7.6 fl (7.5-11.1); PLATELET COUNT 124 10^3/uL (134-434); RBC 3.66 M/mm3 (4.00-5.60); RDW 16.3 % (11.9-15.9); WHITE BLOOD COUNT 14.2 K/mm3 (4.0-10.0)
[2023-05-22 08:37] LABS: CHLORIDE 105 mmol/L (98-107); POTASSIUM 4.2 mmol/L (3.5-5.1); SODIUM 132 mmol/L (136-145)
[2023-05-22 08:42] LABS: ALBUMIN 0.9 g/dl (3.4-5.0); ANION GAP 11 mmol/L (4-13); CO2 16 mmol/L (21-32); GLUCOSE,RANDOM 193 mg/dL (74-106)
[2023-05-22 08:43] LABS: MAGNESIUM 1.7 mg/dL (1.8-2.4)
[2023-05-22 08:45] LABS: CREATININE 1.7 mg/dL (0.55-1.3); PHOSPHOROUS 6.7 mg/dL (2.5-4.9); SGOT/AST 36 U/L (15-37)
[2023-05-22 08:46] LABS: SGPT/ALT 28 U/L (13-61); TOT PROT 3.1 g/dl (6.4-8.2)
[2023-05-22 08:48] LABS: ALK PHOS 88 U/L (45-117)
[2023-05-22 08:49] LABS: BILIRUBIN,TOTAL 0.6 mg/dL (0.2-1)
[2023-05-22] MEDS: PANTOPRAZOLE SODIUM 40 MG VIAL IVPUSH SCH (09:45)
[2023-05-22] MEDS: CLOPIDOGREL BISULFATE 75 MG TABLET (FP) NGT SCH (09:46)
[2023-05-22 10:44] LABS: ANISOCYTOSIS 0; MACROCYTOSIS 0; OVALOCYTE 1+
[2023-05-22] MEDS: AMINO ACIDS 4.25%/D5W 1,000 ML IV SCH (13:11)
[2023-05-22] MEDS: ARTIFICIAL TEARS OPHTHALMIC DROPS OU SCH (14:14)
[2023-05-23 08:24] LABS: HEMOGLOBIN 9.3 GM/dL (11.7-16.9); MCH 24.5 pg (25.7-33.7); MCHC 30.2 g/dl (32.0-35.9); MEAN CELL VOLUME 81.4 fl (80-96); MEAN PLT VOLUME 8.2 fl (7.5-11.1); PLATELET COUNT 158 10^3/uL (134-434); RDW 16.8 % (11.9-15.9); WHITE BLOOD COUNT 27.7 K/mm3 (4.0-10.0)
[2023-05-23 08:36] LABS: CHLORIDE 101 mmol/L (98-107); SODIUM 129 mmol/L (136-145)
[2023-05-23 08:44] LABS: ANION GAP 11 mmol/L (4-13); CO2 17 mmol/L (21-32); GLUCOSE,RANDOM 139 mg/dL (74-106)
[2023-05-23 08:45] LABS: ALBUMIN 0.9 g/dl (3.4-5.0); BLOOD UREA NITROGEN 11.1 mg/dL (7-18); MAGNESIUM 1.8 mg/dL (1.8-2.4)
[2023-05-23 08:47] LABS: CREATININE 2.2 mg/dL (0.55-1.3); PHOSPHOROUS 7.6 mg/dL (2.5-4.9); SGOT/AST 81 U/L (15-37)
[2023-05-23 08:49] LABS: ALK PHOS 86 U/L (45-117); BILIRUBIN,TOTAL 0.5 mg/dL (0.2-1); SGPT/ALT 37 U/L (13-61); TOT PROT 3.3 g/dl (6.4-8.2)
[2023-05-23 08:50] LABS: CALCIUM 5.8 mg/dL (8.5-10.1)
[2023-05-23] MEDS: levETIRAcetam 500 MG/5 ML INJECTION VIAL IVPB SCH ×2 (09:09→11:18)
[2023-05-23 09:20] LABS: ANISOCYTOSIS 0; MACROCYTOSIS 0
[2023-05-23] MEDS: CALCIUM GLUCONATE 10% - 1,000 MG/10 ML VIAL IVPB ONE (16:54)
[2023-05-23] MEDS: CHOLECALCIFEROL (VIT D3) 1,000 UNIT (25 MCG) TABLET PO SCH (16:55)
[2023-05-23] MEDS: FLUDROCORTISONE ACETATE 0.1 MG TABLET (FP) PO SCH (16:55)
[2023-05-24 07:32] LABS: HEMATOCRIT 28.6 % (35.4-49); HEMOGLOBIN 8.7 GM/dL (11.7-16.9); MCH 24.5 pg (25.7-33.7); MCHC 30.4 g/dl (32.0-35.9); MEAN CELL VOLUME 80.6 fl (80-96); MEAN PLT VOLUME 8.7 fl (7.5-11.1); PLATELET COUNT 133 10^3/uL (134-434); RBC 3.54 M/mm3 (4.00-5.60); RDW 16.9 % (11.9-15.9)
[2023-05-24 07:36] LABS: WHITE BLOOD COUNT 30.1 K/mm3 (4.0-10.0)
[2023-05-24 08:13] LABS: CHLORIDE 97 mmol/L (98-107); SODIUM 127 mmol/L (136-145)
[2023-05-24 08:16] LABS: ANION GAP 14 mmol/L (4-13); CO2 16 mmol/L (21-32)
[2023-05-24 08:18] LABS: GLUCOSE,RANDOM 111 mg/dL (74-106)
[2023-05-24 08:20] LABS: PHOSPHOROUS 7.1 mg/dL (2.5-4.9); SGOT/AST 168 U/L (15-37)
[2023-05-24 08:21] LABS: ALBUMIN 0.8 g/dl (3.4-5.0); BILIRUBIN,TOTAL 0.7 mg/dL (0.2-1)
[2023-05-24 08:23] LABS: SGPT/ALT 67 U/L (13-61); TOT PROT 3.4 g/dl (6.4-8.2)
[2023-05-24 08:25] LABS: ALK PHOS 78 U/L (45-117); CREATININE 2.7 mg/dL (0.55-1.3)
[2023-05-24 08:26] LABS: MAGNESIUM 1.9 mg/dL (1.8-2.4)
[2023-05-24 08:52] LABS: CALCIUM 6.1 mg/dL (8.5-10.1)
[2023-05-24] MEDS: MULTIVIT-MINERALS ORAL LIQUID PO SCH (09:07)
[2023-05-24 10:59] LABS: ANISOCYTOSIS 1+; MACROCYTOSIS 0
[2023-05-24] MEDS: PIPERACILLIN/TAZOB 2.25 GM 2.25 GM in DEXTROSE 5%-WATER - 50 ML IVPB SCH (22:13)
[2023-05-25 08:29] LABS: HEMATOCRIT 26.3 % (35.4-49); HEMOGLOBIN 8.2 GM/dL (11.7-16.9); MCH 25.1 pg (25.7-33.7); MCHC 31.1 g/dl (32.0-35.9); MEAN CELL VOLUME 80.8 fl (80-96); PLATELET COUNT 122 10^3/uL (134-434); RBC 3.26 M/mm3 (4.00-5.60); RDW 17.3 % (11.9-15.9); WHITE BLOOD COUNT 26.8 K/mm3 (4.0-10.0)
[2023-05-25 08:41] LABS: CHLORIDE 94 mmol/L (98-107); POTASSIUM 5.5 mmol/L (3.5-5.1); SODIUM 124 mmol/L (136-145)
[2023-05-25 08:49] LABS: ALBUMIN 0.9 g/dl (3.4-5.0); ANION GAP 15 mmol/L (4-13); BLOOD UREA NITROGEN 27.3 mg/dL (7-18); CO2 15 mmol/L (21-32); GLUCOSE,RANDOM 107 mg/dL (74-106)
[2023-05-25 08:51] LABS: SGPT/ALT 81 U/L (13-61)
[2023-05-25 08:52] LABS: CREATININE 3.2 mg/dL (0.55-1.3); SGOT/AST 152 U/L (15-37)
[2023-05-25 08:53] LABS: BILIRUBIN,TOTAL 0.7 mg/dL (0.2-1); TOT PROT 3.4 g/dl (6.4-8.2)
[2023-05-25 08:54] LABS: ALK PHOS 92 U/L (45-117)
[2023-05-25 08:57] LABS: CALCIUM 5.6 mg/dL (8.5-10.1)
[2023-05-25] MEDS: CALCIUM GLUCONATE 10% - 1,000 MG/10 ML VIAL IVPB ONE (09:23)
[2023-05-25 12:16] VITALS: TEMP 96.2
[2023-05-25] MEDS: morphine SULFATE 4 MG/ML VIAL IVPUSH ONE (14:20)
[2023-05-25] MEDS: MORPHINE SULFATE/0.9% NACL/PF 100 MG/100 ML BAG IVPB SCH (14:20)
[2023-05-25] MEDS ORDERED: MORPHINE 100 MG/100 ML MG ONE ×2 (14:24→21:40)
[2023-05-25 14:28] VITALS: BMI 20.6
[2023-05-25 15:18] VITALS: BP 93/65; RESP 14
[2023-05-26 00:36] VITALS: PULSE 58
== END 2023-05-26 03:00 | disposition expired | DRG 870 ==
LOC: JER 11:03 → JERBED 15:57 → J4W 05-20 03:09 → JICU 05-20 22:51
PROVIDERS: ADMIT Internal Medicine; ATTEND Internal Medicine Pulmonary Disease
PROC: 05HM33Z Insertion of Infusion Device into Right Internal Jugular Vein, Percutaneous Approach (ICD-10-PCS; 2023-05-20)
PROC: B543ZZA Ultrasonography of Right Jugular Veins, Guidance (ICD-10-PCS; 2023-05-20)
PROC: 5A1955Z Respiratory Ventilation, Greater than 96 Consecutive Hours (ICD-10-PCS; principal; 2023-05-21)
PROC: 0BH17EZ Insertion of Endotracheal Airway into Trachea, Via Natural or Artificial Opening (ICD-10-PCS; 2023-05-21)
PROC: 4A133B1 Monitoring of Arterial Pressure, Peripheral, Percutaneous Approach (ICD-10-PCS; 2023-05-21)
PROC: 4A133J1 Monitoring of Arterial Pulse, Peripheral, Percutaneous Approach (ICD-10-PCS; 2023-05-21)
PROC: 30233N1 Transfusion of Nonautologous Red Blood Cells into Peripheral Vein, Percutaneous Approach (ICD-10-PCS; 2023-05-21)
DX: A41.9 Sepsis, unspecified organism (principal); R65.21 Severe sepsis with septic shock; N17.9 Acute kidney failure, unspecified; E87.20 Acidosis, unspecified; G93.1 Anoxic brain damage, not elsewhere classified; R64 Cachexia; I46.9 Cardiac arrest, cause unspecified; I10 Essential (primary) hypertension; F10.20 Alcohol dependence, uncomplicated; E03.9 Hypothyroidism, unspecified; E78.5 Hyperlipidemia, unspecified; F17.210 Nicotine dependence, cigarettes, uncomplicated; J44.9 Chronic obstructive pulmonary disease, unspecified; D64.9 Anemia, unspecified; Z68.20 Body mass index [BMI] 20.0-20.9, adult
CPT/HCPCS: 0241U-QW; 31500; 36415; 36430; 36600; 70450-TC; 71045-TC-FY; 72170-TC-FY; 80048; 80053; 80307; 81003; 82306; 82308; 82533; 82550; 82553; 82728; 82803; 82962; 83540; 83550; 83605; 83735; 83880; 83970; 84100; 84439; 84443; 84484; 85025; 85027; 85045; 85610; 85730; 86140; 86316; 86850; 86900; 86901; 86922; 87040; 87077; 87086; 87106; 93005; 93010; 93306-TC; 94002; 95816; 97116-GP; 97161-GP; 99291; J1250; J1644; J3490; P9038; P9058